=== PATIENT | male | born 1995 | race Caucasian/White ===

== ENCOUNTER 2020-03-01 15:48 | Emergency (ER) | payer SELFPAY ==
[2020-03-01 15:49] VITALS: BP 168/86; PULSE 90; RESP 18; TEMP 36.9; O2SAT 100; BMI 32.1
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
[2020-03-01 16:27] LABS: Absolute Lymphocyte Count 2.36 X10^3/uL (0.83-4.51); Absolute Neutrophil Count 4.4 X10^3/uL (2.0-7.7); Basophil# 0.03 X10^3/uL; Basophil% 0.4 % (0-1); Eosinophil# 0.27 X10^3/uL; Eosinophils% 3.5 % (0-5); Hemoglobin 15.8 g/dL (13.0-16.5); Lymphocyte # 2.36 X10^3/ul (4.0); Lymphocyte % 30.8 % (19-41); Mean Corp Hgb Conc 33.6 g/dL (32-36); Mean Corpuscular Hgb 30.9 pg (27.0-32.0); Mean Platelet Vol. 9.6 fl (6.2-12.0); Monocyte# 0.56 X10^3/uL; Monocyte% 7.3 % (0-10); NRBC Flagged by Analyzer 0 % (0-5); Neutrophil # 4.43 X10^3/uL (2.7-7.7); Neutrophil % 57.9 % (47-70); Platelet Count 221 K/mm3 (150-450); RBC Distribution Width CV 12.4 % (11.6-14.6); RBC Distribution Width SD 41.7 fl (35.1-43.9); Red Blood Count 5.11 M/mm3 (4.6-6.2); White Blood Count 7.7 K/mm3 (4.4-11.0)
[2020-03-01 17:18] LABS: ALB/GLOB Ratio 1.1 RATIO (0.9-2.4); AST(SGOT) 20 U/L (15-37); Alanine Aminotransfer ALT/SGPT 42 U/L (16-61); Albumin, Serum 3.8 g/dL (3.2-5.0); Alkaline Phosphatase 72 U/L (45-117); Anion Gap 6 (5-15); BUN 13 mg/dL (7-18); BUN/Creat Ratio 13.1 RATIO (10-20); Calcium,Total 9.2 mg/dL (8.5-10.1); Chloride 109 mmol/L (98-107); Creatinine, Serum 0.99 mg/dL (0.70-1.30); EST Glomerular Filtration Rate 99 mL/min (>60); Est Glom Filt Rate - Afr Amer 119 mL/min (>60); Estimated Creatinine Clearance 122.54 ml/min; Globulin 3.4 g/dL (2.2-4.2); Glucose 97 mg/dL (74-106); Potassium 3.3 mmol/L (3.5-5.1); Protein, Total 7.2 g/dL (6.4-8.2); Sodium Level 142 mmol/L (136-145)
== END 2020-03-01 17:50 | disposition home or self-care (01) ==
PROVIDERS: Emergency Provider Emergency Medicine
DX: S16.1XXA Strain of muscle, fascia and tendon at neck level, initial encounter (principal); S20.211A Contusion of right front wall of thorax, initial encounter; V53.5XXA Driver of pick-up truck or van injured in collision with car, pick-up truck or van in traffic accident, initial encounter; Y93.9 Activity, unspecified; Y92.9 Unspecified place or not applicable; F17.200 Nicotine dependence, unspecified, uncomplicated
CPT/HCPCS: 70450; 71260; 72125; 74177; 80053; 85025; 99285; Q9967; A4216

== ENCOUNTER 2021-04-18 20:19 | Emergency (ER) | payer MEDICAID, SELFPAY ==
[2021-02-13 15:42] VITALS: BMI 32.1
[2021-04-18 20:21] VITALS: BP 163/103; PULSE 84; RESP 18; TEMP 36.4; O2SAT 100; BMI 32.1
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
[2021-04-18] MEDS: Naproxen 375 MG Tablet PO (22:53)
== END 2021-04-18 22:54 | disposition home or self-care (01) ==
LOC: ED 22:52
PROVIDERS: Emergency Provider Emergency Medicine
DX: S60.221A Contusion of right hand, initial encounter (principal); W55.22XA Struck by cow, initial encounter; Y93.9 Activity, unspecified; Y92.9 Unspecified place or not applicable; Y99.9 Unspecified external cause status; F17.290 Nicotine dependence, other tobacco product, uncomplicated
CPT/HCPCS: 73110; 73130; 99283

== ENCOUNTER 2022-03-17 22:59 | Emergency (ER) | payer SELFPAY ==
[2022-03-17 23:00] VITALS: BP 169/82; PULSE 68; RESP 18; TEMP 36.9; O2SAT 97; BMI 35.4
--- NOTE | 2022-03-17 23:12 | CT_ITS ---
INDICATION: Pain -- right side mid EXAMINATION: CT ABDOMEN AND PELVIS WITHOUT CONTRAST - CT Abdomen And Pelvis W/O Contrast Injection TECHNIQUE: Helically acquired images were obtained of the abdomen and pelvis without oral or IV contrast. A radiation dose optimization technique was used for this scan. IV Contrast dosage and agent: None. Oral contrast: None. RADIATION DOSAGE (If Supplied By Facility): CTDIvol = ( 17.64 ) mGy, DLP = ( 996.16 ) mGycm COMPARISON: None. FINDINGS: LOWER CHEST: Minimal basilar atelectasis and pleural thickening without focal infiltrate. No cardiomegaly or pericardial effusion. LIVER: The liver has normal configuration and density given the limitation of noncontrast exam. No focal mass. GALLBLADDER AND BILIARY TREE: No calcified gallstones. No gallbladder distension or wall edema. No intra- or extrahepatic biliary ductal dilation. PANCREAS: No focal cystic or solid mass. SPLEEN: Normal size without focal cystic or solid mass. ADRENAL GLANDS: No nodules. KIDNEYS AND URETERS: Normal renal size and position. No hydronephrosis. PERITONEUM: No ascites or free air. No other fluid collection. BOWEL: No evidence of acute appendicitis. No stomach or bowel distension. No focal inflammatory change. LYMPH NODES: No enlarged mesenteric or retroperitoneal lymph nodes. VESSELS: Aorta is non-dilated. URINARY BLADDER: Unremarkable. REPRODUCTIVE ORGANS: No pelvic masses. ABDOMINAL WALL: No discrete abdominal or pelvic wall hernia. BONES: No lytic or blastic abnormality. CT/Abdomen/Pelvis without Cont IMPRESSION: 1. Negative CT abdomen and pelvis without oral or IV contrast. 2. No evidence renal calcifications or CT evidence of obstructive uropathy. 3. No evidence of masses bowel obstruction abscess free fluid or free air. Normal appendix noted. 4. Minimal pleural-parenchymal scar at the lung bases. Electronically Signed: Good Malhotra MD at 23:54 EDT ,
--- NOTE | 2022-03-17 23:13 | EDS_ITS ---
HPI History of Present Illness Chief Complaint: General Illness Informant: patient and family Narrative Narrative: Presents recurrent abdominal pain this evening. Sharp in nature. Mrutaza had sudden sharp pain while working on a roof that put him to his knees. Has not felt well the last couple days. This evening symptoms returned. No nausea or vomiting. Normal bowel movement this morning. No fever. No dysuria, however states did have more urine frequency earlier and did not drink more water.. No history of kidney stones. No abdominal surgeries in the past. No history of similar. Denies chest pains denies cough. Prior similar symptoms: No PFSH PFSH Medical History Frequent headaches History of fracture of clavicle History of fracture of right ankle Home Medications NK 04/18/21 [History Last Taken Unknown] Allergy/AdvReac Type Severity Reaction Status Date / Time No Known Allergies Allergy Verified 04/18/21 20:24 Family History Father Hypertension Grandmother CVA (cerebral vascular accident) Grandfather CVA (cerebral vascular accident) Social History Smoking Status: Current every day smoker tobacco type: e-cigarettes alcohol intake: current alcohol intake frequency: holidays/special occasions only Alcohol type: hard liquor substance use type: does not use what type of physical activity do you participate in: none ROS ROS ED Constitutional Constitutional ED: Denies chills, fever(s) or sweats Eyes Eyes: Denies change in vision ENT ENT ED: Denies dysphagia or sore throat Cardiovascular Cardiovascular: Denies chest pain, leg edema, palpitations or racing heartbeat Respiratory/Chest Respiratory/Chest: Denies cough, dyspnea or dyspnea on exertion Gastrointestinal Gastrointestinal: Reports abdominal pain; Denies diarrhea, nausea or vomiting Genitourinary Genitourinary ED: Denies dysuria, hematuria or urinary frequency Musculoskeletal Musculoskeletal: Denies back pain, extremity pain or neck pain Integumentary Denies rash or wounds Neurologic Neurologic: Denies headache(s), paresthesias or weakness EXAM Physical Exam Const Vital Signs: 03/17/22 23:00 03/17/22 23:05 Temperature 98.4 F Temperature Source Oral Pulse Rate 68 Respiratory Rate 18 Respiratory Pattern Normal Blood Pressure 169/82 H Blood Pressure Mean 111 Pulse Ox 97 Oxygen Delivery Method Room Air Positive well nourished and well developed General Appearance ED: well developed and NAD HEENT Reports moist mucous membranes normocephalic and atraumatic Eyes PERRL, EOMs intact bilaterally and conjunctivae normal General Eye ED: Yes normal appearance of both eyes Neck no lymphadenopathy and supple General: Negative for tenderness Chest Wall Chest: Negative for tenderness Resp normal respiratory effort and normal air movement Effort and Inspection: symmetric chest movement; Negative for respiratory distress Cardio regular rate, regular rhythm and no murmurs Peripheral Pulses: pulses 2+ throughout GI normal to inspection, nondistended, normoactive bowel sounds GI Narrative: Tender palpation right side mid abdomen there is no rash. Negative [place]'s McBurney's tenderness. Palpation: Negative for guarding or rebound tenderness present Back/Spine no CVA tenderness and no thoracic nor lumbar tenderness Extremity normal to inspection General Extremety ED: Negative for edema or tenderness General Extremity: Negative for edema Neuro oriented x3 and no sensory deficits noted Sensorium / Orientation: awake and alert Skin no rashes or lesions noted and no wounds MDM MDM MDM Narrative Medical decision making narrative: Patient tender right mid abdomen. There is no rash. Abdominal labs obtained normal. Urine negative. CT flank obtained shows no acute process. Normal appendix. He was treated with Toradol with mild improvement. Nonsurgical abdomen on reevaluation. Discussed with patient monitoring for rash. Discussed continuing NSAIDs for which she states is ibuprofen at home. Declines any prescriptions. No vomiting diarrhea has normal bowel movements. Return precautions. He is given follow-up as an outpatient. All questions were answered. Lab Data Attestation: I reviewed the patient's lab results. Labs: Laboratory Results - last 24 hr 03/17/22 03/17/22 03/17/22 23:15 23:15 23:20 WBC 7.4 RBC 5.27 Hgb 16.1 Hct 47.8 MCV 90.7 MCH 30.6 MCHC 33.7 RDW Std Deviation 41.0 RDW Coeff of Gabrielle 12.4 Plt Count 240 MPV 9.6 Immature Gran % (Auto) 0.100 Neut % (Auto) 41.1 L Lymph % (Auto) 47.[address] [place] % (Auto) 6.9 Eos % (Auto) 3.9 Baso % (Auto) 0.5 Absolute Neuts (auto) 3.0 Absolute Lymphs (auto) 3.49 Nucleated RBC % 0 Sodium 138 Potassium 3.6 Chloride 105 Carbon Dioxide 26.0 Anion Gap 7 BUN 9 Creatinine 1.03 Estim Creat Clear Calc 115.75 Est GFR (MDRD) Af Amer 112 Est GFR (MDRD) Non-Af 93 BUN/Creatinine Ratio 8.7 L Glucose 116 H Calcium 8.9 Total Bilirubin 0.30 AST 16 ALT 39 Alkaline Phosphatase 64 Total Protein 7.5 Albumin 3.8 Globulin 3.7 Albumin/Globulin Ratio 1.0 Lipase 64 L Urine Color Yellow Urine Clarity Clear Urine pH 6.0 Ur Specific [place] 1.020 Urine Protein Negative Urine Glucose (UA) Normal Urine Ketones Negative Urine Occult Blood Negative Urine Nitrite Negative Urine Bilirubin Negative Urine Urobilinogen Normal Ur Leukocyte Esterase Negative Urine RBC 0 SEEN Urine WBC 0-5 SEEN Ur Squamous Epith Cells 0 SEEN Urine Bacteria 1+ Urine Mucus 0 SEEN Radiography Diagnostic Testing: Clinical Impression(s) from Imaging Studies Abdomen/Pelvis CT 03/17/22 23:12 IMPRESSION: 1. Negative CT abdomen and pelvis without oral or IV contrast. 2. No evidence renal calcifications or CT evidence of obstructive uropathy. 3. No evidence of masses bowel obstruction abscess free fluid or free air. Normal appendix noted. 4. Minimal pleural-parenchymal scar at the lung bases. Electronically Signed: Good Malhotra MD at 23:54 EDT , Discharge Plan Triage Chief Complaint: General Illness ED Provider: Michael Curry Dx/Rx/DC Orders Clinical Impression: Abdominal pain Instructions: Abdominal Pain Prescriptions: No Action NK Primary Care Provider: Care Physician,No Primary Referrals: Sheila Whitt [NON-STAFF] - 3-5 Days if not improving Care Physician,No Primary [Primary Care Provider] - Activity Restrictions/Additional Instructions: Normal CAT scan. Normal labs. Negative urine. Continue ibuprofen 600 mg every 6 hours as needed. Monitor for any rash. Disposition Disposition: Home, Self Care Discharge Date/Time: 03/18/22 01:16
[2022-03-17 23:27] LABS: Absolute Lymphocyte Count 3.49 X10^3/uL (0.83-4.51); Basophil# 0.04 X10^3/uL; Basophil% 0.5 % (0-1); Eosinophil# 0.29 X10^3/uL; Eosinophils% 3.9 % (0-5); Hematocrit 47.8 % (40-54); Hemoglobin 16.1 g/dL (13.0-16.5); Lymphocyte # 3.49 X10^3/ul (0.83-4.51); Lymphocyte % 47.5 % (19-41); Mean Corp Hgb Conc 33.7 g/dL (32-36); Mean Corpuscular Hgb 30.6 pg (27.0-32.0); Mean Corpuscular Volume 90.7 fL (80-94); Mean Platelet Vol. 9.6 fl (6.2-12.0); Monocyte# 0.51 X10^3/uL; Monocyte% 6.9 % (0-10); NRBC Flagged by Analyzer 0 % (0-5); Neutrophil # 3.01 X10^3/uL (2.7-7.7); Neutrophil % 41.1 % (47-70); Platelet Count 240 K/mm3 (150-450); RBC Distribution Width CV 12.4 % (11.6-14.6); Red Blood Count 5.27 M/mm3 (4.6-6.2); White Blood Count 7.4 K/mm3 (4.4-11.0)
[2022-03-17 23:31] LABS: Mucous, Urine 0 SEEN /hpf (<or=2+); Red Blood Cells-Urine 0 SEEN /hpf (0-5); Squamous Epithelial Cells - UA 0 SEEN /hpf (0-5)
[2022-03-17 23:53] LABS: Color, Urine Yellow (Yellow); Glucose, Dipstick Normal (Normal); Ketone-Dipstick Negative (Negative); Leukocyte Esterase-Dipstick Negative /ul (Negative); Nitrite-Dipstick Negative (Negative); Occult Blood-Urine Negative /ul (Negative); Protein-Dipstick Negative (Negative); Urine Bilirubin Dipstick Negative (Negative); Urine Clarity Clear (Clear); Urine Urobilinogen Normal (Normal)
[2022-03-18 00:02] LABS: AST(SGOT) 16 U/L (15-37); Alanine Aminotransfer ALT/SGPT 39 U/L (16-61); Albumin, Serum 3.8 g/dL (3.2-5.0); Alkaline Phosphatase 64 U/L (45-117); Anion Gap 7 (5-15); BUN 9 mg/dL (7-18); BUN/Creat Ratio 8.7 RATIO (10-20); Calcium,Total 8.9 mg/dL (8.5-10.1); Chloride 105 mmol/L (98-107); Creatinine, Serum 1.03 mg/dL (0.70-1.30); EST Glomerular Filtration Rate 93 mL/min (>60); Est Glom Filt Rate - Afr Amer 112 mL/min (>60); Estimated Creatinine Clearance 115.75 ml/min; Globulin 3.7 g/dL (2.2-4.2); Glucose 116 mg/dL (74-106); Lipase 64 U/L (73-393); Potassium 3.6 mmol/L (3.5-5.1); Protein, Total 7.5 g/dL (6.4-8.2); Sodium Level 138 mmol/L (136-145)
[2022-03-18 00:10] LABS: Bacteria 1+ /hpf (None Seen); White Blood Cells 0-5 SEEN /hpf (0-5)
[2022-03-18] MEDS: 0.9% Normal Saline 1,000 ML 1000 ML IV (00:25)
[2022-03-18] MEDS: Ketorolac 15 MG/ML Vial IV (00:26)
== END 2022-03-18 01:16 | disposition home or self-care (01) ==
PROVIDERS: Emergency Provider Emergency Medicine; Visit Provider Emergency Medicine
DX: R10.9 Unspecified abdominal pain (principal); F17.200 Nicotine dependence, unspecified, uncomplicated
CPT/HCPCS: 74176; 80053; 81001; 83690; 85025; 96361; 96374; 99283; J7030; A4216

== ENCOUNTER 2024-02-06 09:05 | Emergency (ER) | payer OTHER, SELFPAY ==
[2024-02-06 09:06] VITALS: BP 172/90; PULSE 97; RESP 16; TEMP 36.2; O2SAT 98
--- NOTE | 2024-02-06 09:29 | RAD_ITS ---
STUDY: X-RAY - RIGHT FOOT CLINICAL: Male, 28 years old. Injury/Pain TECHNIQUE: 3 view(s) of the foot. COMPARISON: None. FINDINGS: Normal talus, calcaneus, and tarsal bones. Normal visualized subtalar, talonavicular, calcaneocuboid, tarsal and tarsometatarsal articulations. Normal metatarsi. Normal metatarsophalangeal joint of the great toe. Normal tibial and fibular sesamoid bones. Normal interphalangeal joint of the great toe. Normal phalanges of the great toe. Normal second through fifth metatarsophalangeal joints. Normal interphalangeal joints and phalanges of the lesser toes. The soft tissue structures are unremarkable. RAD/Foot min 3 Views IMPRESSION: Normal x-ray examination of the foot. Electronically Signed: Jarad Deng MD at 9:53 EDT ,
--- NOTE | 2024-02-06 09:29 | ED.VIS.LOWEX ---
HPI History of Present Illness Chief Complaint: Lower Extremity Injury Informant: patient Narrative Narrative: Patient is a 28-year-old male with no significant past medical history presenting with right foot injury. Patient was at work and using a motorized left which she was walking behind. He excellently put it in reverse and it ran over his right foot. It took 2 people to move the office foot. He is complain of significant pain at the top of his right foot now. He did take 800 mg ibuprofen prior to arrival. Some mild numbness diffusely. Is not any blood thinners. No other complaints or concerns at this time. No other injuries reported. He was wearing steel toed boots at the time. [facility] Medical History History of fracture of clavicle History of fracture of right ankle Frequent headaches Home Medications ?Medication ?Instructions ?Recorded ?Last Taken ?Type hydrocodone-acetaminophen 5-325mg 1 tab PO Q8H PRN Pain 3 days #10 02/06/24 Unknown Rx 5mg-325mg TABLETS Allergy/AdvReac Type Severity Reaction Status Date / Time No Known Allergies Allergy Verified 02/06/24 09:08 Family History Father Hypertension Grandmother CVA (cerebral vascular accident) Grandfather CVA (cerebral vascular accident) Social History Smoking Status: Current every day smoker tobacco type: e-cigarettes alcohol intake: current alcohol intake frequency: holidays/special occasions only Alcohol type: hard liquor substance use type: does not use what type of physical activity do you participate in: none ROS ROS ED Constitutional Constitutional ED: Denies chills or fever(s) Gastrointestinal Gastrointestinal: Denies vomiting Musculoskeletal Musculoskeletal: Reports other Details: Right foot pain Integumentary Reports other Details: Bruising to right foot Neurologic Neurologic: Reports paresthesias; Denies weakness Hematologic/Lymphatic Hematologic/Lymphatic: Denies easy bleeding or easy bruising EXAM Physical Exam Const Vital Signs: 02/06/24 09:06 02/06/24 12:42 Temperature 97.2 F L 97.4 F L Temperature Source Temporal Pulse Rate 97 92 Respiratory Rate 16 16 Blood Pressure 172/90 H 154/86 H Blood Pressure Mean 117 108 Pulse Ox 98 98 Oxygen Delivery Method Room Air Positive well nourished and well developed General Appearance ED: well developed and NAD HEENT normocephalic and atraumatic Chest Wall inspection of chest normal Resp normal respiratory effort and clear to auscultation bilaterally Cardio regular rate and regular rhythm Extremity Extremity Narrative: Right lower extremity?no obvious deformity of the extremities. No pain to palpation of the right ankle. No tenderness of the proximal fibula. Normal Weston test. Calf compartments are soft. Some soft tissue swelling, bruising and tenderness palpation over the first and second metatarsals. No deformity of the toes appreciated. Neuro Neuro Narrative: Sensation intact to light touch throughout the foot. Patient is does seem to have pain with even light palpation of the foot stated all just feels tight. Psych mental status grossly normal MDM MDM MDM Narrative Medical decision making narrative: Patient evaluated for crush injury to his right foot. Appears to be neurovascular intact with normal capillary refill. I will obtain an x-ray to rule out acute fracture. Differential includes fracture of the foot, contusion and less likely compartment syndrome or vascular injury. X-ray reviewed by myself as well as radiology does not show any acute fracture. Likely this is contusion to the foot and possibly a sprain. Patient is given a postop shoe for comfort. Will follow-up with [facility] outpatient. Is given a short course of [place] for pain control over the weekend. Given work restrictions as needed. Given return precautions. Counseled on RICE therapy. Discharged home in stable condition. Radiography Diagnostic Testing: Clinical Impression(s) from Imaging Studies Foot X-Ray 02/06/24 09:29 IMPRESSION: Normal x-ray examination of the foot. Electronically Signed: Jarad Deng MD at 9:53 EDT , Discharge Plan Triage Chief Complaint: Lower Extremity Injury ED Provider: Lori Flores Dx/Rx/DC Orders Clinical Impression: Contusion of foot, right, Acute pain of right foot Instructions: TERESA LOBO Foot Contusion Prescriptions: New hydrocodone-acetaminophen 5-325 mg tablet 1 tab PO Q8H PRN (Reason: Pain) 3 Days Qty: 10 0RF Primary Care Provider: Care Physician,No Primary Referrals: [facility] [Group of Physicians] - 3-5 Days if not improving Care Physician,No Primary [Primary Care Provider] - Print Language: Lebanese Disposition Disposition: Home, Self Care Discharge Date/Time: 02/06/24 12:43
[2024-02-06 09:44] VITALS: BMI 34.7
[2024-02-06 12:42] VITALS: BP 154/86; PULSE 92; RESP 16; TEMP 36.3; O2SAT 98
== END 2024-02-06 12:43 | disposition home or self-care (01) ==
PROVIDERS: Emergency Provider Emergency Medicine; Visit Provider Emergency Medicine
DX: S90.31XA Contusion of right foot, initial encounter (principal); W24.0XXA Contact with lifting devices, not elsewhere classified, initial encounter; Y93.89 Activity, other specified; Y99.0 Civilian activity done for income or pay; F17.290 Nicotine dependence, other tobacco product, uncomplicated
CPT/HCPCS: 73630; 99283

== ENCOUNTER 2024-02-24 05:31 | Emergency (ER) | payer OTHER, SELFPAY ==
[2024-02-24 05:31] VITALS: BP 162/98; PULSE 81; RESP 16; TEMP 36.1; O2SAT 99; BMI 34.5
--- NOTE | 2024-02-24 05:35 | RAD_ITS ---
INDICATION: INJURY EXAMINATION/TECHNIQUE: X-RAY - RIGHT XR Hand Min 3 Views 3 VIEWS COMPARISON: No relevant prior comparison study available FINDINGS: SOFT TISSUES: There is soft tissue laceration near the fourth and fifth metacarpal. No radiopaque foreign body. BONES/JOINTS: There is a chip fracture at the posterior aspect of the head of fourth metacarpal with displaced fragment near the head of the fifth metacarpal. No sclerotic or destructive changes observed. RAD/Hand Min 3 Views IMPRESSION: There is a chip fracture at the posterior aspect of the head of fourth metacarpal with displaced fragment near the head of the fifth metacarpal. Electronically Signed: Dolores Malloy MD at 7:16 EDT ,
[2024-02-24] MEDS: Morphine 4 MG/ML Syringe IV ×2 (05:45→07:58)
[2024-02-24] MEDS: Ondansetron 4 MG/2 ML Vial IV (05:45)
[2024-02-24] MEDS: Diphth,Pertuss(Acell),Tet Vac 0.5 ML Vial IM (05:47)
[2024-02-24] MEDS: Cefazolin 2 GM in 0.9% Normal Saline (100mL Bag) 100 ML IV (06:16)
--- NOTE | 2024-02-24 07:04 | EDS_ITS ---
HPI History of Present Illness Chief Complaint: Laceration Informant: patient Narrative Narrative: Patient is a 29-year-old male who is otherwise healthy with no significant past medical issues. He is left-hand dominant. 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 He states his hand slipped and went into the band saw. He states this occurred just prior to arrival. He denies any other injuries from it. He denies any numbness or tingling but states he cannot lift his right fourth and fifth finger. He denies any history of immunosuppression bleeding disorder or blood thinner use. However secondary to the trauma he was brought in for evaluation [facility] Medical History History of fracture of clavicle History of fracture of right ankle Frequent headaches Home Medications ?Medication ?Instructions ?Recorded ?Last Taken ?Type NK 02/24/24 Unknown History Allergy/AdvReac Type Severity Reaction Status Date / Time No Known Allergies Allergy Verified 02/24/24 05:34 Family History Father Hypertension Grandmother CVA (cerebral vascular accident) Grandfather CVA (cerebral vascular accident) Social History Smoking Status: Former smoker alcohol intake: current alcohol intake frequency: holidays/special occasions only Alcohol type: hard liquor substance use type: does not use what type of physical activity do you participate in: none ROS ROS ED Constitutional Constitutional ED: Denies chills or fever(s) ENT ENT ED: Denies sore throat Cardiovascular Cardiovascular: Denies chest pain Respiratory/Chest Respiratory/Chest: Denies cough or dyspnea Gastrointestinal Gastrointestinal: Denies abdominal pain, diarrhea, nausea or vomiting Genitourinary Genitourinary ED: Denies dysuria Musculoskeletal Musculoskeletal: Reports other Details: Positive right hand pain/injury Integumentary Reports other Details: Positive right hand laceration Neurologic Neurologic: Reports weakness; Denies headache(s) or paresthesias Hematologic/Lymphatic Hematologic/Lymphatic: Denies easy bleeding or easy bruising EXAM Physical Exam Const Vital Signs: 02/24/24 05:31 Temperature 97 F L Temperature Source Temporal Pulse Rate 81 Respiratory Rate 16 Blood Pressure 162/98 H Blood Pressure Mean 119 Pulse Ox 99 Positive well nourished and well developed General Appearance ED: well developed HEENT HEENT Narrative: Normocephalic atraumatic Eyes PERRL and EOMs intact bilaterally General Eye ED: Negative for pale conjunctiva or scleral icterus Neck supple Resp normal respiratory effort and clear to auscultation bilaterally Cardio regular rate and regular rhythm Extremity Extremity Narrative: Right upper extremity is neurovascularly intact. Patient has a full-thickness laceration to the dorsal aspect of his right hand over top the fourth and fifth distal metacarpals. It is approximately 6.5 cm in length. There is brisk venous bleeding noted but no obvious arterial bleeding. Patient has exposure of his extensor tendons to the fourth and fifth digit indicating extensor tendon injury and this correlates with the fact he cannot lift his fourth and fifth digit. There is no obvious retained foreign body. Patient reports he has normal sensation to light touch in the distal fingers. Capillary refills less than 2 seconds. Neuro oriented x3, CN's II-XII intact bilaterally and no sensory deficits noted Sensorium / Orientation: alert Psych mental status grossly normal Skin no rashes or lesions noted Skin Narrative: Laceration to the dorsal aspect of the right hand as documented above MDM MDM MDM Narrative Medical decision making narrative: Patient arrived to the ER hypertensive but otherwise with stable vitals. He states he is [id number] and therefore the injury is to the nondominant hand. However physical exam shows changes consistent with extensor tendon laceration. As the wound is occurring at a worksite and is mildly contaminated he was given 2 g of Ancef upon arrival and his tetanus status was updated. As this is a high mechanism of injury x-rays were obtained and did show apparent fracture to the fifth proximal phalanx indicating open fracture. There is no obvious arterial damage based on physical exam or neurovascular as he had normal sensation. However based on the trauma to the patient's hand and the fact he uses his hands for work this is a significant injury and therefore the [facility] hand surgery team was contacted. The case was discussed with hand surgeon Dr. Ruby Jansen. She feels that with the high mechanism of injury the questionable fracture and the fact he has 2 extensor tendon lacerations that this should be seen at their facility for potential fixation. The patient was informed of this and does agree with the plan of care and therefore he will be transferred their facility for further treatment. Radiography Diagnostic Testing: Clinical Impression(s) from Imaging Studies Hand X-Ray 02/24/24 05:35 IMPRESSION: There is a chip fracture at the posterior aspect of the head of fourth metacarpal with displaced fragment near the head of the fifth metacarpal. Electronically Signed: Dolores Malloy MD at 7:16 EDT , X-ray of the right hand as interpreted by the emergency medicine physician reveals soft tissue injury with apparent fracture to the proximal phalanx of the fifth digit. Discharge Plan Triage Chief Complaint: Laceration ED Provider: Mike Tyson Dx/Rx/DC Orders Clinical Impression: Extensor tendon laceration of hand with open wound, Open fracture of metacarpal of right hand Prescriptions: No Action NK Primary Care Provider: Care Physician,No Primary Referrals: Care Physician,No Primary [Primary Care Provider] - Print Language: Greenlandic Disposition Disposition: Acute Care Hospital Discharge Location: [facility]
--- NOTE | 2024-02-24 07:16 | NURSING ---
CALLED [facility], ETA IS 30 MIN
[2024-02-24 07:34] VITALS: BP 165/84; PULSE 86; RESP 16; O2SAT 97
[2024-02-24 08:00] VITALS: BP 162/78; PULSE 64; RESP 18; TEMP 36.6; O2SAT 99
== END 2024-02-24 08:08 | disposition short-term general hospital (02) ==
PROVIDERS: Emergency Provider Emergency Medicine; Visit Provider Emergency Medicine
DX: S62.304A Unspecified fracture of fourth metacarpal bone, right hand, initial encounter for closed fracture (principal); S62.306A Unspecified fracture of fifth metacarpal bone, right hand, initial encounter for closed fracture; Z87.891 Personal history of nicotine dependence; Z23 Encounter for immunization; X58.XXXA Exposure to other specified factors, initial encounter
CPT/HCPCS: 73130; 90471; 90715; 96365; 96375; 99284; J7050; A4216; J2405